=== PATIENT | female | born 1990 | race American Indian/Alaskan Native ===

== ENCOUNTER 2020-08-22 09:55 | Emergency (ER) | payer SELFPAY ==
[2020-08-22 10:04] VITALS: BP 109/80
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
--- NOTE | 2020-08-22 10:38 | XRay Report ---
RIGHT HAND 3 VIEW(S) INDICATION / CLINICAL INFORMATION: hand injury COMPARISON: None available. FINDINGS: BONES / JOINT(S): No acute fracture or subluxation. No significant arthritis. SOFT TISSUES: No significant abnormality. ADDITIONAL FINDINGS: None. Signer Name: Yuri Bennett MD Signed: 08/22/2020 10:34 AM Workstation Name: [id number]
== END 2020-08-22 10:52 | disposition home or self-care (01) ==
LOC: ED 09:55
DX: S66.911A Strain of unspecified muscle, fascia and tendon at wrist and hand level, right hand, initial encounter (principal); Z79.899 Other long term (current) drug therapy; W22.01XA Walked into wall, initial encounter; Y93.89 Activity, other specified; Y92.89 Other specified places as the place of occurrence of the external cause; Y99.8 Other external cause status
CPT/HCPCS: 99283

== ENCOUNTER 2021-09-03 11:59 | Emergency (ER) | payer SELFPAY ==
--- NOTE | 2021-09-03 12:26 | Emergency Department Report ---
ED Extremity Problem HPI - General Stated complaint: RT HAND INJURY Time Seen by Provider: 09/03/21 12:24 - History of Present Illness Initial comments: Is a 31-year-old female presents the emergency department chief complaint of right hand pain. She reports she punched a wall last night and has been having pain in the base of her fourth and fifth digit since. She denies any other injuries. Reports pain is 6 out of 10 describes dull and throbbing. - Related Data Previous Rx's Medication Instructions Recorded Last Taken Type Naproxen 500 mg PO Q12H PRN #12 tablet 08/22/20 Unknown Rx traMADoL [Ultram 50 MG tab] 50 mg PO Q4HR PRN #12 tablet 09/03/21 Unknown Rx Allergies Allergy/AdvReac Type Severity Reaction Status Date / Time No Known Allergies Allergy Verified 09/03/21 12:23 ED Review of Systems ROS: Stated complaint: RT HAND INJURY Other details as noted in HPI Comment: All other systems reviewed and negative Constitutional: denies: chills, fever Eyes: denies: eye pain, eye discharge, vision change ENT: denies: ear pain, throat pain Respiratory: denies: cough, shortness of breath, wheezing Cardiovascular: denies: chest pain, palpitations Endocrine: no symptoms reported Gastrointestinal: denies: abdominal pain, nausea, diarrhea Genitourinary: denies: urgency, dysuria, discharge Musculoskeletal: as per HPI, arthralgia. denies: back pain, joint swelling Skin: denies: rash, lesions Neurological: denies: headache, weakness, paresthesias Psychiatric: denies: anxiety, depression Hematological/Lymphatic: denies: easy bleeding, easy bruising ED Past Medical Hx - Past Medical History Previous Medical History?: No - Surgical History Past Surgical History?: No - Social History Smoking Status: Never Smoker Substance Use Type: None - Medications Home Medications: Home Medications Medication Instructions Recorded Confirmed Last Taken Type Naproxen 500 mg PO Q12H PRN #12 tablet 08/22/20 Unknown Rx traMADoL [Ultram 50 MG tab] 50 mg PO Q4HR PRN #12 tablet 09/03/21 Unknown Rx ED Physical Exam - General General appearance: alert, in no apparent distress - Head Head exam: Present: atraumatic, normocephalic - Eye Eye exam: Present: normal appearance, PERRL, EOMI Pupils: Present: normal accommodation - ENT ENT exam: Present: normal exam, normal orophraynx, mucous membranes moist - Neck Neck exam: Present: normal inspection, full ROM. Absent: tenderness, meningismus - Respiratory Respiratory exam: Present: normal lung sounds bilaterally. Absent: respiratory distress, wheezes, rales, rhonchi, stridor - Cardiovascular Cardiovascular Exam: Present: regular rate, normal rhythm, normal heart sounds. Absent: systolic murmur, diastolic murmur, rubs, gallop - GI/Abdominal GI/Abdominal exam: Present: soft, normal bowel sounds. Absent: distended, tenderness, guarding, rebound, rigid - Extremities Exam Extremities exam: Present: normal inspection, full ROM, tenderness (Tenderness to the base the fourth and fifth digits of the metacarpals. No deformity. Normal distal sensation and capillary refill.) - Back Exam Back exam: Present: normal inspection, full ROM. Absent: tenderness, CVA tenderness (R), CVA tenderness (L) - Neurological Exam Neurological exam: Present: alert, oriented X3, normal gait - Psychiatric Psychiatric exam: Present: normal affect, normal mood - Skin Skin exam: Present: warm, dry, intact, normal color. Absent: rash ED Course Vital Signs 09/03/21 12:24 Temperature 97.9 F Pulse Rate 76 Respiratory 16 Rate Blood Pressure 120/72 O2 Sat by Pulse 100 Oximetry ED Medical Decision Making - Radiology Data Radiology results: report reviewed, image reviewed Ordering Physician: NEGIN HERCULES Date of Service: 09/03/21 Procedure(s): XR hand 3+V RT Accession Number(s): [id number] cc: NEGIN HERCULES Fluoro Time In Minutes: XR hand 3+V RT INDICATION / CLINICAL INFORMATION: punched a wall, TTP to the 5th metacarpal. COMPARISON: August 22, 2020 FINDINGS: Soft tissue swelling with mildly displaced fracture of the distal fifth phalanx. Normal alignment. Joint spaces are preserved. No destructive osseous lesion or suspicious periosteal reaction. Impression: 1. Mildly displaced fracture of the proximal aspect of the distal fifth phala nx. Signer Name: Glenn Patel MD Signed: 09/03/2021 1:03 PM Workstation Name: [id number] - Medical Decision Making Patient's x-ray showed a distal phalanx fracture of the proximal portion at the DIP joint. The patient reported this is a chronic deformity in her finger but is causing her more pain after she punched the wall. There are no additional fractures. We will place the patient in a splint and recommend outpatient Ortho follow-up. - Differential Diagnosis Fracture, strain, sprain Critical care attestation.: If time is entered above; I have spent that time in minutes in the direct care of this critically ill patient, excluding procedure time. ED Disposition Clinical Impression: Distal phalanx or phalanges, closed fracture Qualifiers: Encounter type: initial encounter Finger: little finger Fracture alignment: nondisplaced Laterality: right Qualified Code(s): S62.666A - Nondisplaced fracture of distal phalanx of right little finger, initial encounter for closed fracture Disposition: 01 HOME / SELF CARE / HOMELESS Is pt being admited?: No Condition: Stable Instructions: Finger Fracture, Adult, [id number] Prescriptions: traMADoL [Ultram 50 MG tab] 50 mg PO Q4HR PRN #12 tablet PRN Reason: Pain Referrals: COOPER SANTOYO MD [Staff Physician] - 3-5 Days Time of Disposition: 13:17
--- NOTE | 2021-09-03 13:08 | XRay Report ---
XR hand 3+V RT INDICATION / CLINICAL INFORMATION: punched a wall, TTP to the 5th metacarpal. COMPARISON: August 22, 2020 FINDINGS: Soft tissue swelling with mildly displaced fracture of the distal fifth phalanx. Normal alignment. Joint spaces are preserved. No destructive osseous lesion or suspicious periosteal reaction. Impression: 1. Mildly displaced fracture of the proximal aspect of the distal fifth phalanx. Signer Name: Glenn Patel MD Signed: 09/03/2021 1:03 PM Workstation Name: [id number]
[2021-09-03 14:25] VITALS: BP 114/75
== END 2021-09-03 14:25 | disposition home or self-care (01) ==
LOC: ED 11:59
DX: S62.666A Nondisplaced fracture of distal phalanx of right little finger, initial encounter for closed fracture (principal); X58.XXXA Exposure to other specified factors, initial encounter; Y93.89 Activity, other specified; Y92.89 Other specified places as the place of occurrence of the external cause; Y99.8 Other external cause status
CPT/HCPCS: 99283